=== PATIENT | female | born 1955 | race African-American/Black ===

== ENCOUNTER → 2016-02-24 | Day surgery (SDC) | payer OTHER, MEDICARE ==
[~2016-02-24] VITALS: Ht 177.8 cm; Wt 77.1 kg
[~2016-02-24] MED LIST: AROMASIN25 M1 PO; ASPIRIN EC81 M1 PO; CARVEDILOL3.125 M1 PO; DIGOXIN250 MCG PO; LOVASTATIN20 M1 PO; METFORMIN HCL1000 M3 PO; SOTALOL120 MG PO
--- NOTE | 2016-02-24 14:49 | Operative Report ---
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 This resulted in the development of hypotony and discomfort for the patient as well as inhibition of the upper eyelid to close over the bleb. Medical methods were tried in the office to strength the bleb or to lubricate the eye to make the situation more tolerable however the patient has become increasingly uncomfortable and desponded about this over the last several years she was offered the chance for bleb revision eye was scleral reinforcement and after a discussion of the risks and benefits accepted this. The patient was brought to the operating room and standard monitoring equipment was attached the patient was prepped and draped in the usual fashion for sterile intraocular surgery a lid speculum was placed to retract the eyelids and expose the eye. Several cc of a [id number] mixture of lidocaine and Marcaine was infused underneath the conjunctiva and tenons tissue superiorly behind the bleb. The bleb was grasped with a 0.12 forceps and with the aid of a 69 blade the bleb was dissected off of the sclera and cornea and removed from the eye. As expected the chamber was maintained and while there was some moisture in the area of the old trabeculectomy site there was no free flow of fluid the conjunctiva and tenons tissue was meticulously from each other and from the sclera behind the location of the previous filtering bleb so that the tissue could be mobilized and brought down over the now uncovered previous trabeculectomy area. Using 6 interrupted 10-0 nylon sutures the conjunctiva and tenons tissue was reattached to the eye wall and to the cornea knots were trimmed and buried and at the conclusion of this the area which had contained the previous thin avascular filtration bleb eye was completely covered with fresh conjunctival and tenons tissue reinforcing both the sclera and covering over the trabeculectomy site. The anterior chamber remained formed and when balanced salt solution was placed into the anterior chamber there was no significant leakage from the superior conjunctival opening. A lid speculum was removed from the eye as was the draping. Several drops of antibiotic and steroid were placed on the eye as well as Maxitrol ointment and an eye pad as well as eye shield was then placed over this left eye the patient was removed to the holding area in stable condition and will be seen in follow- up tomorrow having tolerated the procedure well
== END ==
LOC: STS 03:16
DX: H44.4 Hypotony of eye (principal); I10 Essential (primary) hypertension; E11.9 Type 2 diabetes mellitus without complications; Z79.84 Long term (current) use of oral hypoglycemic drugs; I48.91 Unspecified atrial fibrillation; Z79.82 Long term (current) use of aspirin; Z87.891 Personal history of nicotine dependence
CPT/HCPCS: J2001; J2250